=== PATIENT | male | born 1990 | race Caucasian/White ===

== ENCOUNTER 2022-07-11 09:06 | Emergency (ER) | payer BC, MEDICAID, SELFPAY ==
[2022-07-11 09:19] VITALS: BP 154/88; PULSE 93; RESP 16; TEMP 36.9; O2SAT 94
--- NOTE | 2022-07-11 09:20 | W.ED.ABDPA2 ---
HPI - Abdominal Pain General: Chief Complaint: Abdominal Pain Stated Complaint: abd pains Time Seen by Provider: 07/11/22 09:15 Source: patient Mode of arrival: ambulatory History of Present Illness: 32-year-old male presents emergency room planing abdominal pain increase relates that he epigastric left upper quadrant is worse whenever he eats. He has had this for several years he is seen gastroenterology had EGD and colonoscopy he tells me he was told that he gets diverticulitis whenever he stops antibiotics it recurs. He did take a hydrocodone prior to coming in he denies any medication melena hematemesis cough cramps he has been vomiting is been mostly bilious. No dysuria urgency or frequency. he was seen last night in [place] but left the ER without completing his visit due to the weight. MD elicited complaint: abdominal pain Onset (ago): day(s) (4) Location: Epigastric and LUQ Severity: moderate Quality: cramping Exacerbating factors: eating Relieving factors: nothing Associated Symptoms: Reports diarrhea, nausea and vomiting; Denies anorexia, belching, bloating, change in bowel habits, change in stool character, chills, coffee ground emesis, constipation, GI cramping, dyspepsia, dysuria, excessive flatus, fever(s), heartburn, hematochezia, hematuria, hematemesis, fecal incontinence, loose stools, melena, poor appetite and syncope Review of Systems Const: Denies: fever(s) or chills Card: Denies: chest pain or syncope Resp: Denies: dyspnea, productive cough or non-productive cough GI: Reports: abdominal pain, nausea, vomiting and diarrhea; Denies: hematemesis, coffee ground emesis, heartburn, constipation, bloating, GI cramping, belching, excessive flatus, fecal incontinence, change in bowel habits, change in stool character, hematochezia or melena : Denies: dysuria, urinary frequency, urinary urgency or hematuria Skin/Breast: Reports: rash and pruritus [facility] ED PFSH: Medical History (Updated 07/11/22 @ 10:51 by Abel Traylor DO) Chronic abdominal pain Physical Exam Const: GENERAL APPEARANCE: cooperative and comfortable ORIENTATION/CONSCIOUSNESS: Yes awake, Yes oriented to person, Yes oriented to place and Yes oriented to time HENMT: COMMON NORMALS: normocephalic, atraumatic and hearing grossly normal bilaterally HEAD & SCALP: normocephalic and atraumatic Resp: COMMON NORMALS: normal respiratory effort, No retractions, No use of accessory muscles and clear to auscultation bilaterally AUSCULTATION: clear to auscultation bilaterally Cardio: COMMON NORMALS: regular rate, regular rhythm and No murmurs present (Cardio) RATE: regular rate RHYTHM: regular rhythm GI: COMMON NORMALS: No hepatosplenomegaly present AUSCULTATION: Yes normoactive bowel sounds PALPATION: Yes Tenderness to palpation present (GI) (Epigastric / left upper quadrant), No Guarding due to palpation present (GI) and Yes No hepatosplenomegaly present Extremity: COMMON NORMALS: normal to inspection, capillary refill normal, no clubbing, cyanosis or edema, no calf tenderness and no pedal edema Neuro: SENSORIUM/ORIENTATION: Yes oriented to person, Yes oriented to place and Yes oriented to time Skin: COMMON NORMALS: no rashes or lesions noted GENERAL SKIN EXAM: no rashes or lesions noted Course Vital Signs: Vital signs: Vital Signs Temperature 98.4 F 07/11/22 09:19 Pulse Rate 85 07/11/22 11:00 Respiratory Rate 16 07/11/22 09:19 Blood Pressure 126/63 07/11/22 11:00 Pulse Oximetry 95 07/11/22 11:00 Oxygen Delivery Me thod Room Air 07/11/22 09:19 MDM - Abdominal Pain Medical Decision Making CT abdomen unremarkable. Labs are negative. CT did not show any sign of diverticulitis although there is some diverticulosis without inflammation there is no sign of pancreatitis no sign of free air or perforation. Labs do not show any sign of acute GI bleed. Hemoglobin is stable. Patient did get relief of symptoms with GI cocktail. We will have him stop the omeprazole start pantoprazole and Carafate. Recommend he follow-up with his PCP or [employer]. Medical Records I reviewed the patient's medical records. Lab Data I reviewed the patient's lab results. 07/11/22 09:38 07/11/22 09:38 Labs/Radiology: Radiology Impressions Abdomen/Pelvis CT 07/11/22 09:28 IMPRESSION: No acute findings. Laboratory Results WBC 8.9 10^3/uL (4.0-10.0) 07/11/22 09:38 RBC 5.20 10^6/uL (4.1-5.3) 07/11/22 09:38 Hgb 14.8 g/dL (11.7-16.6) 07/11/22 09:38 Hct 45.3 % (42.0-52.0) 07/11/22 09:38 MCV 87.1 fl (80-94) 07/11/22 09:38 MCH 28.5 pg (28.0-34.0) 07/11/22 09:38 MCHC 32.7 g/dL (30.0-36.0) 07/11/22 09:38 RDW 13.1 % (12.1-15.1) 07/11/22 09:38 Plt Count 298 10^3/cmm (130-400) 07/11/22 09:38 MPV 9.3 fL (7.4-10.4) 07/11/22 09:38 Neut % (Auto) 67.7 % 07/11/22 09:38 Lymph % (Auto) 22.5 % 07/11/22 09:38 [place] % (Auto) 4.7 % 07/11/22 09:38 Eos % (Auto) 4.6 % 07/11/22 09:38 Baso % (Auto) 0.3 % 07/11/22 09:38 Neut # (Auto) 5.99 10^3/uL (1.8-7.7) 07/11/22 09:38 Lymph # (Auto) 2.0 10^3/uL (0.8-4.8) 07/11/22 09:38 [place] # (Auto) 0.4 10^3/uL (0.2-0.9) 07/11/22 09:38 Eos # (Auto) 0.4 10^3/uL (0.0-0.8) 07/11/22 09:38 Baso # (Auto) 0.0 10^3/uL (0.0-0.1) 07/11/22 09:38 Nucleated RBC % (auto) 0 % 07/11/22 09: Nucleated RBCs # 0.0 /100WBC 07/11/22 09: Sodium 137 mmol/L (136-145) 07/11/22 09:38 Potassium 4.3 mmol/L (3.5-5.1) 07/11/22 09:38 Chloride 102 mmol/L (98-107) 07/11/22 09:38 Carbon Dioxide 24 mmol/L (22-29) 07/11/22 09:38 Anion Gap 15.3 (5-19) 07/11/22 09:38 BUN 14 mg/dL (6-20) 07/11/22 09:38 Creatinine 0.7 mg/dL (0.7-1.2) 07/11/22 09:38 GFR Calculation 129.1 mL/min (90-130) 07/11/22 09:38 Glucose 112 mg/dL (65-115) 07/11/22 09:38 Calculated Osmolality 285 mOsm/kg (285-295) 07/11/22 09:38 Calcium 9.1 mg/dL (8.5-10.5) 07/11/22 09:38 Total Bilirubin 0.3 mg/dL (0.15-1.2) 07/11/22 09:38 AST 26 U/L (0-40) 07/11/22 09:38 ALT 47 U/L (0-41) H 07/11/22 09:38 Alkaline Phosphatase 89 U/L (40-130) 07/11/22 09:38 Total Protein 7.5 g/dL (6.6-8.7) 07/11/22 09:38 Albumin 4.4 g/dL (3.5-5.2) 07/11/22 09:38 Globulin 3.1 g/dL (1.3-4.6) 07/11/22 09:38 Lipase 19 U/L (13-60) 07/11/22 09:38 Urine Color Yellow (Yellow) 07/11/22 09:40 Urine Appearance Clear (CLEAR) 07/11/22 09:40 Urine pH 5 (5-7) 07/11/22 09:40 Ur Specific [place] 1.025 (1.005-1.030) 07/11/22 09:40 Urine Protein Neg (Negative) 07/11/22 09:40 Urine Glucose (UA) Norm (Normal) 07/11/22 09:40 Urine Ketones Negative (Negative) 07/11/22 09:40 Urine Blood Neg (Negative) 07/11/22 09:40 Urine Nitrate Negative (Negative) 07/11/22 09:40 Urine Bilirubin Neg (Negative) 07/11/22 09:40 Urine Urobilinogen 1 mg/dL (Negative) H 07/11/22 09:40 Ur Leukocyte Esterase Negative (Negative) 07/11/22 09:40 Discharge Plan Discharge Patient Disposition: Home Clinical Impression: Chronic abdominal pain, Gastric ulcer Condition: Stable Prescriptions: New Carafate 1 gram tablet 1 g PO Q6H PRN (Reason: upset stomach) 84 Days Qty: 336 0RF pantoprazole 40 mg tablet,delayed release (DR/EC) 40 mg PO BID Qty: 60 0RF Discontinued omeprazole 40 mg capsule,delayed release(DR/EC) 40 mg PO BID No Action lisinopril-hydrochlorothiazide 20-12.5 mg tablet 1 tab PO QAM hydrocodone-acetaminophen 10-325 mg tablet 1 tab PO Q6H PRN (Reason: Pain) dicyclomine 20 mg tablet 20 mg PO TID lorazepam 1 mg tablet 1 mg PO TID PRN (Reason: Anxiety) zolpidem 10 mg tablet 10 mg PO BEDTIME [place] Mucil Fiber Gummies 1 tab PO .UP TO QID Discharge Orders: Discharge ED (Routine); Ordered 07/11/22 Ordered By: Abel Traylor Referrals: Arben Gonzalez Jr, [Primary Care Provider] - Discharge Diet: As Directed Discharge Activity: Increase activity as tolerated Patient Instructions: Diet for Stomach Ulcers and Gastritis (ED), Abdominal Pain (ED), Opioid Safety, Pain Management Activity Restrictions/Additional Instructions: You are seen today for abdominal pain. Your labs and CT were unremarkable. Urine was also normal. Given this GI cocktail improved things more aggressive treatment of your stomach is advisable. Stop the omeprazole start pantoprazole 40 twice daily + Carafate 1 tablet 4 times a day as needed for stomach upset bland GI diet follow-up with your primary care doctor or GI doctor. 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
[2022-07-11 09:26] VITALS: BP 153/82; PULSE 90; O2SAT 95
--- NOTE | 2022-07-11 09:28 | CTR_ITS ---
PROCEDURE INFORMATION: Exam: CT Abdomen And Pelvis Without Contrast Exam date and time: 07/11/2022 10:07 AM Age: 32 years old Clinical indication: Abdominal pain; Generalized; Prior surgery; Surgery type: Gb, polyps removed from colon TECHNIQUE: Imaging protocol: Computed tomography of the abdomen and pelvis without contrast. Radiation optimization: All CT scans at this facility use at least one of these dose optimization techniques: automated exposure control; mA and/or kV adjustment per patient size (includes targeted exams where dose is matched to clinical indication); or iterative reconstruction. REPORTING DATA: Count of CT and Cardiac NM exams in prior 12 months: This patient has received 0 known CTs and 0 known cardiac nuclear medicine studies in the 12 months prior to the current study. COMPARISON: No relevant prior studies available. RADIATION DOSE METRICS: Total DLP (mGy-cm): 1334.76 FINDINGS: Liver: Hepatic steatosis. Gallbladder and bile ducts: Cholecystectomy. Pancreas: Normal. No ductal dilation. Spleen: Normal. No splenomegaly. Adrenal glands: Normal. No mass. Kidneys and ureters: Normal. No hydronephrosis. Stomach and bowel: Colonic diverticulosis without evidence of diverticulitis. No bowel obstruction. Appendix: No evidence of appendicitis. Intraperitoneal space: Unremarkable. No free air. No significant fluid collection. Vasculature: Unremarkable. No abdominal aortic aneurysm. Lymph nodes: Unremarkable. No enlarged lymph nodes. Urinary bladder: Unremarkable as visualized. Reproductive: Unremarkable as visualized. Bones/joints: Remote right rib fractures. Soft tissues: Small fat containing umbilical hernia. CT/CT abdomen pelvis con [id number] IMPRESSION: No acute findings.
[2022-07-11 09:42] LABS: Add Urine Microscopic? NO; Charge for UA Resulting for Rev
[2022-07-11 09:44] LABS: Basophils % 0.3 %; Eosinophils # 0.4 10^3/uL (0.0-0.8); Eosinophils % 4.6 %; Hematocrit 45.3 % (42.0-52.0); Hemoglobin 14.8 g/dL (11.7-16.6); Lymphocytes % 22.5 %; Mean Corpuscular HGB Conc 32.7 g/dL (30.0-36.0); Mean Corpuscular Hemoglobin 28.5 pg (28.0-34.0); Mean Corpuscular Volume 87.1 fl (80-94); Mean Platelet Volume 9.3 fL (7.4-10.4); Monocytes # 0.4 10^3/uL (0.2-0.9); Monocytes % 4.7 %; Neutrophils # 5.99 10^3/uL (1.8-7.7); Neutrophils % 67.7 %; Nucleated Red Blood Cells % 0 %; Platelet Count 298 10^3/cmm (130-400); Red Cell Distribution Width 13.1 % (12.1-15.1); White Blood Count 8.9 10^3/uL (4.0-10.0)
[2022-07-11 09:47] LABS: Urine Appearance Clear (CLEAR); Urine Color Yellow (Yellow)
[2022-07-11 09:48] LABS: Bilirubin Urine Neg (Negative); Blood Urine Neg (Negative); Glucose Urine UA Norm (Normal); Ketones Urine Negative (Negative); Leukocyte Esterase Urine Negative (Negative); Nitrate Urine Negative (Negative); Protein Urine Neg (Negative); Specific Gravity, Urine 1.025 (1.005-1.030); Urobilinogen Urine 1 mg/dL (Negative); pH Urine 5 (5-7)
[2022-07-11] MEDS: ondansetron 2 mg/ML SDV 2 mL 4 MG IVP (09:53)
[2022-07-11] MEDS: sodium chloride 0.9% 1,000 ML 999 ML IV (09:53)
[2022-07-11] MEDS: lidocaine 2% viscous 15 ML, aluminum-mag hydrox-simethicon 30 ML, sucralfate oral liq 1 GM PO (09:53)
[2022-07-11 10:04] LABS: Alanine Aminotransferase 47 U/L (0-41); Albumin Level 4.4 g/dL (3.5-5.2); Alkaline Phosphatase 89 U/L (40-130); Anion Gap 15.3 (5-19); Aspartate Amino Transferase 26 U/L (0-40); Blood Urea Nitrogen 14 mg/dL (6-20); Calcium 9.1 mg/dL (8.5-10.5); Carbon Dioxide 24 mmol/L (22-29); Chloride 102 mmol/L (98-107); Globulin 3.1 g/dL (1.3-4.6); Glomerular Filtration Rate 129.1 mL/min (90-130); Glucose 112 mg/dL (65-115); Lipase 19 U/L (13-60); Osmolality Calculated 285 mOsm/kg (285-295); Potassium 4.3 mmol/L (3.5-5.1); Sodium 137 mmol/L (136-145); Total Bilirubin 0.3 mg/dL (0.15-1.2); Total Protein 7.5 g/dL (6.6-8.7)
[2022-07-11 10:26] VITALS: BP 126/63; O2SAT 97
[2022-07-11 11:00] VITALS: BP 126/63; PULSE 85; O2SAT 95
== END 2022-07-11 11:02 | disposition home or self-care (01) ==
PROVIDERS: Physician Assistant; Emergency Provider Family Medicine; PCP Family Medicine
DX: G89.29 Other chronic pain (principal); R10.9 Unspecified abdominal pain; K25.9 Gastric ulcer, unspecified as acute or chronic, without hemorrhage or perforation
CPT/HCPCS: 36415; 74176; 80053; 81003; 83690; 85025; 96361; 96374; 99285; J2405; J7030

== ENCOUNTER 2022-07-11 12:11 | Emergency (ER) | payer BC, MEDICAID, SELFPAY ==
[2022-07-11 12:25] VITALS: BP 125/81; PULSE 90; RESP 15; O2SAT 95; BMI 50.7
--- NOTE | 2022-07-11 13:33 | W.ED.ABDPA2 ---
HPI - Abdominal Pain General: Chief Complaint: Abdominal Pain Stated Complaint: abd pain Time Seen by Provider: 07/11/22 13:13 Source: patient Mode of arrival: ambulatory History of Present Illness: 32-year-old male presents to the emergency room with complaints of rectal bleeding he was seen earlier this morning with complaints of epigastric discomfort that were relieved by GI cocktail. He was discharged home with change in his PPI to pantoprazole 40 twice daily and to Carafate. He had previously seen gastroenterology and told me he had a EGD and colonoscopy. Evidently they did have some difficulty with his colonoscopy. At discharge earlier today we had advised him to follow-up with his PCP or GI for further evaluation. We did reviewed the CT with him there is no finding of perforation of the stomach thickening of the stomach no acute pancreatitis no acute diverticulitis no obstruction or mass that were visualized on the CT. He returns with his father demanding that he must have a CT with contrast or a CTA. He is now reporting rectal bleeding which occurred after he was discharged earlier today. His previous labs reviewed his vital signs on presentation are still stable. MD elicited complaint: abdominal pain Pertinent past history: none Onset (ago): minute(s) Pain Consistency: constant Quality: cramping Migration to: other (Rectal/pelvis) Relieving factors: nothing Associated Symptoms: Reports hematochezia; Denies bloating, chills, coffee ground emesis, diarrhea, dysuria, fever(s), hematemesis, nausea and vomiting Review of Systems Const: Denies: fever(s), chills, fatigue or malaise ENMT: Denies: throat pain, ear or mastoid pain, nasal discharge or nasal congestion Card: Denies: chest pain, edema, dyspnea on exertion or orthopnea Resp: Denies: dyspnea, productive cough or non-productive cough GI: Reports: hematochezia; Denies: abdominal pain, nausea, vomiting, hematemesis, coffee ground emesis, diarrhea or bloating : Denies: flank pain, dysuria, urinary frequency or urinary urgency Skin/Breast: Denies: rash or pruritus PFS ED PFSH: Medical History Chronic abdominal pain Physical Exam Const: GENERAL APPEARANCE: cooperative and comfortable ORIENTATION/CONSCIOUSNESS: Yes awake, Yes oriented to person, Yes oriented to place and Yes oriented to time HENMT: COMMON NORMALS: normocephalic, atraumatic and hearing grossly normal bilaterally HEAD & SCALP: normocephalic and atraumatic Resp: COMMON NORMALS: normal respiratory effort, No retractions, No use of accessory muscles and clear to auscultation bilaterally AUSCULTATION: clear to auscultation bilaterally Cardio: COMMON NORMALS: regular rate, regular rhythm and No murmurs present (Cardio) RATE: regular rate RHYTHM: regular rhythm GI: COMMON NORMALS: Soft to palpation and No hepatosplenomegaly present AUSCULTATION: Yes normoactive bowel sounds PALPATION: Yes Soft to palpation, No Tenderness to palpation present (GI), No Guarding due to palpation present (GI) and Yes No hepatosplenomegaly present Extremity: COMMON NORMALS: normal to inspection, capillary refill normal, no clubbing, cyanosis or edema, no calf tenderness and no pedal edema Neuro: SENSORIUM/ORIENTATION: Yes oriented to person, Yes oriented to place and Yes oriented to time Skin: COMMON NORMALS: no rashes or lesions noted GENERAL SKIN EXAM: no rashes or lesions noted Course Vital Signs: Vital signs: Vital Signs Pulse Rate 90 07/11/22 12:25 Respiratory Rate 15 07/11/22 12:25 Blood Pressure 125/81 07/11/22 12:25 Pulse Oximetry 95 07/11/22 12:25 Oxygen Delivery Me thod Room Air 07/11/22 12:25 MDM - Abdominal Pain Medical Decision Making Rectal exam done Hemoccult is negative no bright red blood noted at the rectum. We will discharge patient home. He is states the blood he noticed was after he wiped and none in the toilet. I did still did recommend that he get a repeat hemoglobin tomorrow repeat hemoglobin compared to the one done earlier today actually had increased some probably a lab sampling issue. Strongly recommend he follow-up for further evaluation through his primary care doctor. He like to get a second opinion on GI recommend that his primary care doctor Dr. Rodriguez can help him with that. Return if he has further problems. Medical Records I reviewed the patient's medical records. Lab Data I reviewed the patient's lab results. 07/11/22 13:36 Labs/Radiology: Laboratory Results WBC 9.0 10^3/uL (4.0-10.0) 07/11/22 13:36 RBC 5.40 10^6/uL (4.1-5.3) H 07/11/22 13:36 Hgb 15.9 g/dL (11.7-16.6) 07/11/22 13:36 Hct 47.2 % (42.0-52.0) 07/11/22 13:36 MCV 87.4 fl (80-94) 07/11/22 13:36 MCH 29.4 pg (28.0-34.0) 07/11/22 13:36 MCHC 33.7 g/dL (30.0-36.0) 07/11/22 13:36 RDW 13.1 % (12.1-15.1) 07/11/22 13:36 Plt Count 306 10^3/cmm (130-400) 07/11/22 13:36 MPV 9.0 fL (7.4-10.4) 07/11/22 13:36 Neut % (Auto) 63.2 % 07/11/22 13:36 Lymph % (Auto) 27.7 % 07/11/22 13:36 [place] % (Auto) 4.4 % 07/11/22 13:36 Eos % (Auto) 4.1 % 07/11/22 13:36 Baso % (Auto) 0.2 % 07/11/22 13:36 Neut # (Auto) 5.68 10^3/uL (1.8-7.7) 07/11/22 13:36 Lymph # (Auto) 2.5 10^3/uL (0.8-4.8) 07/11/22 13:36 [place] # (Auto) 0.4 10^3/uL (0.2-0.9) 07/11/22 13:36 Eos # (Auto) 0.4 10^3/uL (0.0-0.8) 07/11/22 13:36 Baso # (Auto) 0.0 10^3/uL (0.0-0.1) 07/11/22 13:36 Nucleated RBC % (auto) 0 % 07/11/22 13:36 Nucleated RBCs # 0.0 /100WBC 07/11/22 13:36 Discharge Plan Discharge Patient Disposition: Home Clinical Impression: Chronic abdominal pain, Rectal bleed Condition: Stable Prescriptions: No Action lisinopril-hydrochlorothiazide 20-12.5 mg tablet 1 tab PO QAM hydrocodone-acetaminophen 10-325 mg tablet 1 tab PO Q6H PRN (Reason: Pain) dicyclomine 20 mg tablet 20 mg PO TID lorazepam 1 mg tablet 1 mg PO TID PRN (Reason: Anxiety) zolpidem 10 mg tablet 10 mg PO BEDTIME [place] Mucil Fiber Gummies 1 tab PO .UP TO QID sucralfate [Carafate] 1 gram tablet 1 g PO Q6H PRN (Reason: upset stomach) 84 Days Qty: 336 0RF Rx Instructions: (not filled rx as of 07/11/22) pantoprazole 40 mg tablet,delayed release (DR/EC) 40 mg PO BID Qty: 60 0RF Rx Instructions: (not filled rx as of 07/11/22) Discharge Orders: Discharge ED (Routine); Ordered 07/11/22 Ordered By: Abel Traylor Referrals: Arben Gonzalez Jr, [Primary Care Provider] - Discharge Diet: Usual diet Discharge Activity: Resume usual activity Patient Instructions: Abdominal Pain (ED), Opioid Safety, Pain Management Activity Restrictions/Additional Instructions: You are seen today for your chronic abdominal pain and report of blood from the rectum. Your rectal exam in the emergency room did not show any bright red blood or any occult blood. You describe some blood after wiping with a bowel movement. Do recommend that you follow-up with Dr. Rodriguez he can repeat hemoglobin tomorrow. In addition you can discussed Dr. Rodriguez referral to gastroenterology for further evaluation of your colon and the chronic abdominal pain. 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
[2022-07-11 13:59] LABS: Basophils % 0.2 %; Eosinophils # 0.4 10^3/uL (0.0-0.8); Eosinophils % 4.1 %; Hematocrit 47.2 % (42.0-52.0); Hemoglobin 15.9 g/dL (11.7-16.6); Lymphocytes # 2.5 10^3/uL (0.8-4.8); Lymphocytes % 27.7 %; Mean Corpuscular HGB Conc 33.7 g/dL (30.0-36.0); Mean Corpuscular Hemoglobin 29.4 pg (28.0-34.0); Mean Corpuscular Volume 87.4 fl (80-94); Monocytes # 0.4 10^3/uL (0.2-0.9); Monocytes % 4.4 %; Neutrophils # 5.68 10^3/uL (1.8-7.7); Neutrophils % 63.2 %; Nucleated Red Blood Cells % 0 %; Platelet Count 306 10^3/cmm (130-400); Red Cell Distribution Width 13.1 % (12.1-15.1)
--- NOTE | 2022-07-11 14:10 | PC.PHAR ---
pt was seen in the er earlier around 10:12 on 07/11/22-pt states he was on omeprazole 40mg bid when pt was discharged dced omeprazole and wrote for pantoprazole 40mg bid and carafate 1g q6h prn which pt states he has not filled yet-
--- NOTE | 2022-07-17 13:33 | DCPLANNER ---
Addendum entered by Yuko Nunes 08/20/22 14:19: nursing unit manager received notification from Cammy FERNANDO to have patients EGD/Colonscopy report to [facility] - rn case manager hospice called patient to inform that he would need to get his information sent to Cammy FERNANDO. nursing unit manager called phone number [phone] - unable to speak with patient, a voicemail was left for patient to return case operator phone call. Addendum entered by Yuko Nunes 07/17/22 13:39: late entry - 07.16.22 nursing unit manager called Cammy FERNANDO on 07.16.22 to confirm if clinic had received patients information. nursing unit manager was told that the referral department is behind, and could not tell rn case manager hospice if patients information had been received at this time. Referrals are taking 5 - 7 days to be processed. Original Note: late entry - on 07.12.22 nursing unit manager was asked to speak with patient about a referral to a GI specialist. nursing unit manager spoke with patient and explained that [facility] does not have a GI specialist, but does have general surgery. nursing unit manager asked patient if he would like to be referred to general surgery at [facility] and to a GI specialist. Patient stated that he would like to be referred to [facility] general surgery and to [facility] . nursing unit manager called [facility] General Surgery, gave clinic patients information and a follow up appointment was scheduled for Saturday, August 13, 2022 at 1:[address] Ann. nursing unit manager gave patient the appointment time. nursing unit manager faxed patients information to Cammy FERNANDO, patients information will be reviewed, clinic will call patient with appointment information.
== END 2022-07-11 15:18 | disposition home or self-care (01) ==
PROVIDERS: Emergency Provider Family Medicine; PCP Family Medicine
DX: K92.2 Gastrointestinal hemorrhage, unspecified (principal); G89.29 Other chronic pain; R10.9 Unspecified abdominal pain
CPT/HCPCS: 36415; 85025; 99283